=== PATIENT | male | born 1965 | race African-American/Black ===

== ENCOUNTER 2017-04-06 13:40 | Emergency (ER) | payer OTHER, MEDICAID ==
[~2017-04-06] VITALS: Ht 182.9 cm; Wt 65.0 kg
[2017-04-06] MEDS ORDERED: METHYLPREDNISOLONE SOD SUCC 125 MG/2 ML VIAL IV STA (14:21)
[2017-04-06] MEDS ORDERED: ALBUTEROL (0.083%) 2.5MG/3ML NEB HHN STA (14:21)
[2017-04-06] MEDS ORDERED: ASPIRIN 81MG TABLET PO STA (14:21)
[2017-04-06] MEDS ORDERED: NITROGLYCERIN OINT 1GM/INCH UDPKT TD STA (14:21)
[2017-04-06] MEDS ORDERED: IPRATROPIUM BROMIDE (0.02%) 0.5MG/2.5ML NEB HHN STA (14:21)
[2017-04-06] MEDS ORDERED: SODIUM CHLORIDE 0.9% 1000ML BAG (SEPSIS BOLUS) IV ONE (14:30)
[2017-04-06] MEDS ORDERED: LEVOFLOXACIN 750MG PREMIX 150 ML IV ONE (14:30)
[2017-04-06 15:00] LABS: HEMATOCRIT. 43.8 % (42.0-52.0); HEMOGLOBIN. 14.3 g/dL (14.0-18.0); MEAN CORPUSCULAR HEMOGLOBIN 30.8 pg (28.0-32.0); MEAN CORPUSCULAR VOLUME 94.1 fL (80.0-94.0); MEAN PLATELET VOLUME 6.9 fl (7.4-10.4); PLATELET 193 x1000/uL (130-400); RED BLOOD CELL COUNT 4.66 mill/uL (4.7-6.1); RED CELL DISTRIBUTION WIDTH 16.5 % (11.6-14.6)
[2017-04-06 15:07] LABS: CARBON DIOXIDE 38 mEq/L (21-32); CHLORIDE 98 mEq/L (98-107); INR 1.2; PARTIAL THROMBOPLASTIN TIME 25.8 sec (24.0-34.0); PROTHROMBIN TIME 12.1 sec
[2017-04-06 15:15] LABS: TROPONIN I 0.02 ng/mL (0.00-0.04)
[2017-04-06 15:39] LABS: PLATELET ESTIMATE NORMAL
[2017-04-06 15:42] LABS: CLARITY URINE CLEAR (CLEAR); COLOR URINE YELLOW (YELLOW); GLUCOSE URINE NEGATIVE (NEGATIVE); KETONES URINE NEGATIVE (NEGATIVE); LEUKOCYTE ESTERASE URINE TRACE (NEGATIVE); NITRITE URINE NEGATIVE (NEGATIVE); OCCULT BLOOD URINE NEGATIVE (NEGATIVE); PH URINE 5.5 (4.5-8.0); PROTEIN URINE NEGATIVE (NEGATIVE); SPECIFIC GRAVITY URINE 1.018 (1.005-1.030)
[2017-04-06 17:59] VITALS: BP 105/93
[2017-04-14] MEDS ORDERED: AZIT500T5 PO (11:10)
[2017-04-14] MEDS ORDERED: METH4TAB17 PO (11:10)
[2017-04-14] MEDS ORDERED: TIOT18CA3 INH (11:10)
[2017-04-14] MEDS ORDERED: ALBU6.7H INH (11:10)
== END 2017-04-06 18:03 | disposition left against medical advice (07) ==
LOC: EDBD → ER 14:16 → EDBEDREQ 15:50 → ER 18:03 → CANBEDREQ 18:34
DX: J44.1 Chronic obstructive pulmonary disease with (acute) exacerbation (principal); J45.909 Unspecified asthma, uncomplicated; R79.89 Other specified abnormal findings of blood chemistry; I10 Essential (primary) hypertension
CPT/HCPCS: 36415; 71010; 80053; 81001; 83605; 83690; 83880; 84484; 85025; 85610; 85730; 87040; 87086; 93005; 94640; 96365; 96366; 96375; 99285; G0482; J1956; J2930; J7030; J7611; 96361

== ENCOUNTER 2017-05-30 19:14 | Emergency (ER) | payer OTHER, MEDICAID ==
[~2017-05-30] VITALS: Ht 180.3 cm; Wt 78.0 kg
[~2017-05-30 19:14] MED LIST: ALBU6.7H INH; AZIT500T5 PO; METH4TAB17 PO; QUET25TA PO; THEOL PO; TIOT18CA3 INH; dilantin; predni PO
[2017-05-30] MEDS ORDERED: ASPIRIN 81MG TABLET PO STA (21:32)
[2017-05-30] MEDS ORDERED: FUROSEMIDE 40MG/4ML VIAL IV STA (21:32)
[2017-05-30] MEDS ORDERED: NITROGLYCERIN OINT 1GM/INCH UDPKT TD STA (21:32)
[2017-05-30 22:06] VITALS: BP 125/96
[2017-05-30] MEDS ORDERED: LEVOFLOXACIN 750MG PREMIX 150 ML IV ONE (23:00)
[2017-05-30 23:01] LABS: *AMPHETAMINES SCREEN URINE NEGATIVE (NEGATIVE); *BARBITURATES SCREEN URINE NEGATIVE (NEGATIVE); *BENZODIAZEPINES SCREEN URINE NEGATIVE (NEGATIVE); *COCAINE SCREEN URINE NEGATIVE (NEGATIVE); CANNABINOID URINE SCREEN PRESUMTIVE POSITIVE (NEGATIVE); METHADONE URINE SCREEN NEGATIVE (NEGATIVE); OPIATES URINE SCREEN NEGATIVE (NEGATIVE); PHENCYCLIDINE URINE SCREEN NEGATIVE (NEGATIVE)
[2017-05-30 23:13] LABS: BG CARBOXYHEMOGLOBIN 2.7 % (0.5-1.5); BG FRACTION INSPIRED OXYGEN 28; BG HCO3 ACT 39.7 mmol/L (22.0-26.0); BG METHEMOGLOBIN 0.3 % (0.0-1.5); BG OXYGEN SATURATION 91.8 % (92.0-98.5); BG PCO2 62.8 mmHg (35.0-45.0); BG PH 7.419 (7.350-7.450); BG PO2 63.1 mmHg (75.0-100.0); BG SAMPLE SITE RIGHT RADIAL; BG TOTAL HEMOGLOBIN 16.3 g/dL (12.0-18.0); BG VENT MODE NASAL CANNULA
[2017-05-30 23:26] LABS: BASOPHILS % 0.4 % (0.0-2.0); EOSINOPHILS % 0.1 % (0.0-5.0); HEMATOCRIT. 46.6 % (42.0-52.0); HEMOGLOBIN. 15.1 g/dL (14.0-18.0); LYMPHOCYTES % 10.4 % (20.0-50.0); MEAN CORPUSCULAR VOLUME 92.4 fL (80.0-94.0); MEAN PLATELET VOLUME 7.4 fl (7.4-10.4); MONOCYTES % 6.9 % (2.0-8.0); NEUTROPHILS % 82.2 % (40.0-76.0); PLATELET 202 x1000/uL (130-400); RED BLOOD CELL COUNT 5.04 mill/uL (4.7-6.1); RED CELL DISTRIBUTION WIDTH 16.3 % (11.6-14.6)
[2017-05-30 23:39] LABS: D-DIMER 1.57 mg/L FEU (<0.50); INR 1.1; PARTIAL THROMBOPLASTIN TIME 24.2 sec (24.0-34.0); PROTHROMBIN TIME 11.6 sec
[2017-05-30 23:45] LABS: CHLORIDE 94 mEq/L (98-107); ETHANOL BLOOD < 10 mg/dL; TROPONIN I < 0.02 ng/mL (0.00-0.04)
[2017-05-30 23:56] LABS: CARBON DIOXIDE 43 mEq/L (21-32)
== END 2017-05-30 23:35 | disposition left against medical advice (07) ==
LOC: ER 19:14 → MERGE 19:14 → ER 23:35 → CANBEDREQ 05-31 07:02
DX: E87.2 Acidosis (principal); R06.02 Shortness of breath; F17.210 Nicotine dependence, cigarettes, uncomplicated; R91.8 Other nonspecific abnormal finding of lung field; R09.02 Hypoxemia; Z88.5 Allergy status to narcotic agent
CPT/HCPCS: 36415; 36600; 71101; 80053; 80305; 82375; 82805; 83605; 83880; 84484; 85025; 85379; 85610; 85730; 87040; 93005; 96374; 99285; G0482; J1940

== ENCOUNTER 2017-06-05 16:23 | Emergency (ER) | payer OTHER, MEDICAID ==
[~2017-06-05] VITALS: Ht 172.7 cm; Wt 77.0 kg
[~2017-06-05 16:23] MED LIST changes: -dilantin; -predni PO
[2017-06-05 17:06] VITALS: BP 113/82
[2017-06-05] MEDS ORDERED: SODIUM CHLORIDE 0.9% 1,000 ML IV ONE (17:36)
[2017-06-05 18:01] LABS: BASOPHILS % 0.7 % (0.0-2.0); EOSINOPHILS % 0.6 % (0.0-5.0); HEMATOCRIT. 45.7 % (42.0-52.0); HEMOGLOBIN. 14.7 g/dL (14.0-18.0); LYMPHOCYTES % 26.7 % (20.0-50.0); MEAN CORPUSCULAR HEMOGLOBIN 29.7 pg (28.0-32.0); MEAN CORPUSCULAR VOLUME 92.2 fL (80.0-94.0); MEAN PLATELET VOLUME 7.7 fl (7.4-10.4); MONOCYTES % 8.8 % (2.0-8.0); NEUTROPHILS % 63.2 % (40.0-76.0); PLATELET 146 x1000/uL (130-400); RED BLOOD CELL COUNT 4.95 mill/uL (4.7-6.1); RED CELL DISTRIBUTION WIDTH 16.2 % (11.6-14.6)
[2017-06-05 18:15] LABS: CARBON DIOXIDE 38 mEq/L (21-32); CHLORIDE 100 mEq/L (98-107); TROPONIN I 0.04 ng/mL (0.00-0.04)
[2017-06-05 18:43] LABS: INR 1.1; PROTHROMBIN TIME 11.8 sec (9.4-11.6)
== END 2017-06-05 18:55 | disposition left against medical advice (07) ==
LOC: ER 17:06 → MERGE 17:06 → ER 18:55
DX: R10.33 Periumbilical pain (principal); F99 Mental disorder, not otherwise specified; G40.909 Epilepsy, unspecified, not intractable, without status epilepticus; F17.210 Nicotine dependence, cigarettes, uncomplicated; Z88.5 Allergy status to narcotic agent
CPT/HCPCS: 36415; 80053; 83690; 84484; 85025; 85610; 99284; J7030

== ENCOUNTER 2017-06-08 22:22 | Emergency (ER) | payer OTHER, MEDICAID ==
[~2017-06-08] VITALS: Ht 172.7 cm; Wt 60.0 kg
[2017-06-08 23:40] LABS: BASOPHILS % 0.3 % (0.0-2.0); EOSINOPHILS % 0.4 % (0.0-5.0); HEMOGLOBIN. 15.5 g/dL (14.0-18.0); LYMPHOCYTES % 16.7 % (20.0-50.0); MEAN CORPUSCULAR HEMOGLOBIN 29.7 pg (28.0-32.0); MONOCYTES % 7.7 % (2.0-8.0); NEUTROPHILS % 74.9 % (40.0-76.0); PLATELET 126 x1000/uL (130-400); RED BLOOD CELL COUNT 5.22 mill/uL (4.7-6.1); RED CELL DISTRIBUTION WIDTH 16.1 % (11.6-14.6)
[2017-06-08 23:46] LABS: CHLORIDE 102 mEq/L (98-107)
[2017-06-08 23:52] LABS: CARBON DIOXIDE 36 mEq/L (21-32)
[2017-06-09 02:27] VITALS: BP 99/48
== END 2017-06-09 03:27 | disposition home or self-care (01) ==
LOC: ER 22:22 → MERGE 22:22 → ER 06-09 03:27
DX: M54.5 Low back pain (principal); F17.200 Nicotine dependence, unspecified, uncomplicated; Z88.5 Allergy status to narcotic agent
CPT/HCPCS: 36415; 70450; 72100; 72125; 80048; 85025; 99285

== ENCOUNTER 2017-06-10 15:01 | Emergency (ER) | payer OTHER ==
[~2017-06-10] VITALS: Ht 177.8 cm; Wt 77.0 kg
[2017-06-10 16:49] LABS: BASOPHILS % 1.5 % (0.0-2.0); HEMATOCRIT. 48.9 % (42.0-52.0); HEMOGLOBIN. 15.7 g/dL (14.0-18.0); MEAN CORPUSCULAR HEMOGLOBIN 29.6 pg (28.0-32.0); MEAN CORPUSCULAR VOLUME 92.2 fL (80.0-94.0); MONOCYTES % 12.3 % (2.0-8.0); NEUTROPHILS % 50.2 % (40.0-76.0); PLATELET 112 x1000/uL (130-400); RED CELL DISTRIBUTION WIDTH 16.6 % (11.6-14.6)
[2017-06-10 16:51] LABS: CHLORIDE 100 mEq/L (98-107); INR 1.1; PROTHROMBIN TIME 11.2 sec (9.4-11.6)
[2017-06-10 16:58] LABS: ETHANOL BLOOD < 10 mg/dL
[2017-06-10 17:00] LABS: CARBON DIOXIDE 40 mEq/L (21-32)
[2017-06-10 17:01] LABS: PHENYTOIN < 0.4 ug/mL (10-20)
[2017-06-10] MEDS ORDERED: IPRATROPIUM/ALBUTEROL 0.5-3(2.5)MG/3ML NEB HHN ONE ×2 (17:30→17:45)
[2017-06-10] MEDS ORDERED: METHYLPREDNISOLONE SOD SUCC 125 MG/2 ML VIAL IV STA (17:32)
[2017-06-10] MEDS ORDERED: PHENYTOIN SODIUM 1,000 MG in SODIUM CHLORIDE 0.9% 100 ML IV ONE (18:00)
[2017-06-10] MEDS ORDERED: METHYLPREDNISOLONE SOD SUCC 125 MG/2 ML VIAL IM STA (18:08)
[2017-06-10] MEDS ORDERED: PREDNISONE 20MG TABLET PO STA (18:08)
[2017-06-10 18:17] VITALS: BP 116/70
[2017-06-10] MEDS ORDERED: PHENYTOIN SODIUM EXTENDED 100MG CAPSULE PO ONE (19:00)
== END 2017-06-10 19:42 | disposition left against medical advice (07) ==
LOC: ER 16:19
DX: J44.1 Chronic obstructive pulmonary disease with (acute) exacerbation (principal); J45.901 Unspecified asthma with (acute) exacerbation; G40.909 Epilepsy, unspecified, not intractable, without status epilepticus; N40.0 Benign prostatic hyperplasia without lower urinary tract symptoms; I10 Essential (primary) hypertension; F17.200 Nicotine dependence, unspecified, uncomplicated; Z88.6 Allergy status to analgesic agent; Z91.19 Patient's noncompliance with other medical treatment and regimen
CPT/HCPCS: 36415; 71010; 80053; 80185; 83880; 85025; 85610; 93005; 99285; G0482; J1165; J2930; J7512; J7050; J7620

== ENCOUNTER 2017-06-10 22:42 | Emergency (ER) | payer OTHER ==
[~2017-06-10] VITALS: Ht 182.9 cm; Wt 75.0 kg
[2017-06-10 23:13] VITALS: BP 106/73
== END 2017-06-11 03:40 | disposition left against medical advice (07) ==
LOC: ER 22:42
DX: R10.9 Unspecified abdominal pain (principal); Z53.21 Procedure and treatment not carried out due to patient leaving prior to being seen by health care provider

== ENCOUNTER 2017-06-11 10:16 | Emergency (ER) | payer OTHER, MEDICAID ==
[~2017-06-11] VITALS: Ht 182.9 cm; Wt 78.0 kg
[2017-06-11 10:55] VITALS: BP 155/86
== END 2017-06-11 12:03 | disposition left against medical advice (07) ==
LOC: ER 10:16
DX: R10.9 Unspecified abdominal pain (principal); Z53.21 Procedure and treatment not carried out due to patient leaving prior to being seen by health care provider

== ENCOUNTER 2017-06-13 16:47 | Emergency (ER) | payer OTHER, MEDICAID ==
[~2017-06-13] VITALS: Ht 167.6 cm; Wt 77.0 kg
[2017-06-13 16:57] VITALS: BP 106/85
== END 2017-06-13 16:55 | disposition left against medical advice (07) ==
LOC: ER 16:47
DX: R10.9 Unspecified abdominal pain (principal); M79.605 Pain in left leg; M79.604 Pain in right leg; Z53.21 Procedure and treatment not carried out due to patient leaving prior to being seen by health care provider

== ENCOUNTER 2017-06-16 21:02 | Emergency (ER) | payer OTHER, MEDICAID ==
[~2017-06-16] VITALS: Ht 185.4 cm; Wt 70.0 kg
[2017-06-16] MEDS ORDERED: ALBUTEROL (0.083%) 2.5MG/3ML NEB HHN STA (22:59)
[2017-06-16] MEDS ORDERED: IPRATROPIUM BROMIDE (0.02%) 0.5MG/2.5ML NEB HHN STA (22:59)
[2017-06-16] MEDS ORDERED: METHYLPREDNISOLONE SOD SUCC 125 MG/2 ML VIAL IV STA (22:59)
[2017-06-16 23:28] LABS: CHLORIDE 102 mEq/L (98-107)
[2017-06-16 23:36] LABS: CARBON DIOXIDE 36 mEq/L (21-32)
[2017-06-17 00:09] LABS: BASOPHILS % 1.1 % (0.0-2.0); HEMATOCRIT. 43.7 % (42.0-52.0); LYMPHOCYTES % 31.6 % (20.0-50.0); MEAN CORPUSCULAR HEMOGLOBIN 29.5 pg (28.0-32.0); MEAN CORPUSCULAR VOLUME 90.9 fL (80.0-94.0); MEAN PLATELET VOLUME 7.5 fl (7.4-10.4); MONOCYTES % 14.8 % (2.0-8.0); NEUTROPHILS % 51.5 % (40.0-76.0); PLATELET 122 x1000/uL (130-400); RED BLOOD CELL COUNT 4.81 mill/uL (4.7-6.1); RED CELL DISTRIBUTION WIDTH 16.6 % (11.6-14.6)
[2017-06-17 00:11] LABS: HEMOGLOBIN. 14.2 g/dL (14.0-18.0)
[2017-06-17 02:18] VITALS: BP 117/74
== END 2017-06-17 02:40 | disposition home or self-care (01) ==
LOC: ER 06-17 02:40
DX: J44.9 Chronic obstructive pulmonary disease, unspecified (principal); I50.9 Heart failure, unspecified; F17.200 Nicotine dependence, unspecified, uncomplicated; J45.909 Unspecified asthma, uncomplicated; Z88.5 Allergy status to narcotic agent
CPT/HCPCS: 36415; 71010; 80048; 82962; 85025; 94640; 96374; 99285; J2930; J7611; 99406

== ENCOUNTER 2017-06-20 14:47 | Emergency (ER) | payer OTHER, MEDICAID ==
[~2017-06-20] VITALS: Ht 185.4 cm; Wt 84.0 kg
[2017-06-20 16:16] LABS: CHLORIDE 102 mEq/L (98-107)
[2017-06-20 16:23] LABS: BASOPHILS % 0.6 % (0.0-2.0); EOSINOPHILS % 0.8 % (0.0-5.0); HEMATOCRIT. 46.4 % (42.0-52.0); HEMOGLOBIN. 14.8 g/dL (14.0-18.0); LYMPHOCYTES % 26.3 % (20.0-50.0); MEAN CORPUSCULAR HEMOGLOBIN 29.4 pg (28.0-32.0); MEAN PLATELET VOLUME 8.2 fl (7.4-10.4); MONOCYTES % 14.1 % (2.0-8.0); NEUTROPHILS % 58.2 % (40.0-76.0); PLATELET 143 x1000/uL (130-400); RED BLOOD CELL COUNT 5.05 mill/uL (4.7-6.1); RED CELL DISTRIBUTION WIDTH 16.9 % (11.6-14.6)
[2017-06-20 16:25] LABS: CARBON DIOXIDE 38 mEq/L (21-32); ETHANOL BLOOD < 10 mg/dL
[2017-06-20 18:18] LABS: CLARITY URINE CLOUDY (CLEAR); COLOR URINE DARK YELLOW (YELLOW); GLUCOSE URINE NEGATIVE (NEGATIVE); KETONES URINE NEGATIVE (NEGATIVE); LEUKOCYTE ESTERASE URINE NEGATIVE (NEGATIVE); NITRITE URINE NEGATIVE (NEGATIVE); OCCULT BLOOD URINE NEGATIVE (NEGATIVE); PH URINE 5.5 (4.5-8.0); PROTEIN URINE 2+ (NEGATIVE); SPECIFIC GRAVITY URINE 1.033 (1.005-1.030)
[2017-06-20 18:32] LABS: *AMPHETAMINES SCREEN URINE NEGATIVE (NEGATIVE); *BARBITURATES SCREEN URINE NEGATIVE (NEGATIVE); *BENZODIAZEPINES SCREEN URINE NEGATIVE (NEGATIVE); *COCAINE SCREEN URINE NEGATIVE (NEGATIVE); CANNABINOID URINE SCREEN PRESUMTIVE POSITIVE (NEGATIVE); METHADONE URINE SCREEN NEGATIVE (NEGATIVE); OPIATES URINE SCREEN NEGATIVE (NEGATIVE); PHENCYCLIDINE URINE SCREEN NEGATIVE (NEGATIVE)
[2017-06-20 22:45] VITALS: BP 104/65
== END 2017-06-21 01:45 | disposition left against medical advice (07) ==
LOC: ER 16:35
DX: K52.9 Noninfective gastroenteritis and colitis, unspecified (principal); E11.43 Type 2 diabetes mellitus with diabetic autonomic (poly)neuropathy; K31.84 Gastroparesis; E11.65 Type 2 diabetes mellitus with hyperglycemia; E44.1 Mild protein-calorie malnutrition; E86.0 Dehydration; J45.909 Unspecified asthma, uncomplicated; N17.0 Acute kidney failure with tubular necrosis; I50.9 Heart failure, unspecified; F32.9 Major depressive disorder, single episode, unspecified; J44.9 Chronic obstructive pulmonary disease, unspecified; F41.9 Anxiety disorder, unspecified; F12.10 Cannabis abuse, uncomplicated; Z68.24 Body mass index [BMI] 24.0-24.9, adult; Z88.5 Allergy status to narcotic agent; Z59.0 Homelessness
CPT/HCPCS: 36415; 74176; 80053; 80305; 81001; 82962; 83036; 85025; 85651; 87040; 87077; 87086; 87186; 99285; G0482

== ENCOUNTER 2017-06-23 01:19 | Emergency (ER) | payer OTHER, MEDICAID ==
[~2017-06-23] VITALS: Ht 182.9 cm; Wt 82.0 kg
[2017-06-23] MEDS ORDERED: IBUPROFEN 800MG TABLET PO ONE (06:30)
[2017-06-23 08:48] VITALS: BP 112/86
== END 2017-06-23 09:09 | disposition home or self-care (01) ==
LOC: ER 01:19
DX: S00.83XA Contusion of other part of head, initial encounter (principal); M54.5 Low back pain; I50.9 Heart failure, unspecified; J44.9 Chronic obstructive pulmonary disease, unspecified; Z88.5 Allergy status to narcotic agent; Y04.0XXA Assault by unarmed brawl or fight, initial encounter; Y93.89 Activity, other specified; Y92.89 Other specified places as the place of occurrence of the external cause; Y99.8 Other external cause status
CPT/HCPCS: 99283

== ENCOUNTER 2017-06-23 12:04 | Emergency (ER) | payer OTHER, MEDICAID ==
[~2017-06-23] VITALS: Ht 172.7 cm; Wt 60.0 kg
[2017-06-23 12:54] VITALS: BP 170/135
== END 2017-06-23 17:45 | disposition left against medical advice (07) ==
LOC: ER 12:04
DX: Z53.21 Procedure and treatment not carried out due to patient leaving prior to being seen by health care provider (principal)

== ENCOUNTER 2017-06-25 12:35 | Emergency (ER) | payer OTHER, MEDICAID ==
[~2017-06-25] VITALS: Ht 177.8 cm; Wt 70.0 kg
[2017-06-25 20:29] VITALS: BP 109/80
== END 2017-06-26 00:11 | disposition home or self-care (01) ==
LOC: ER 12:35
DX: S09.90XA Unspecified injury of head, initial encounter (principal); G40.909 Epilepsy, unspecified, not intractable, without status epilepticus; F43.10 Post-traumatic stress disorder, unspecified; F10.10 Alcohol abuse, uncomplicated; Y90.9 Presence of alcohol in blood, level not specified; Z88.5 Allergy status to narcotic agent; Y08.89XA Assault by other specified means, initial encounter; Y93.89 Activity, other specified; Y92.488 Other paved roadways as the place of occurrence of the external cause
CPT/HCPCS: 70450; 70486; 99284

== ENCOUNTER 2017-06-30 07:34 | Inpatient (IN) | payer OTHER, MEDICAID ==
[2017-06-30] VITALS (11 sets, daily range): BP systolic 92–139; BP diastolic 39–85
[~2017-06-30] VITALS: Ht 180.3 cm; Wt 67.3 kg
[2017-06-30] MEDS ORDERED: METHYLPREDNISOLONE SOD SUCC 125 MG/2 ML VIAL IV STA (09:12)
[2017-06-30] MEDS ORDERED: IPRATROPIUM/ALBUTEROL 0.5-3(2.5)MG/3ML NEB HHN ONE ×2 (09:15→13:15)
[2017-06-30] MEDS ORDERED: IPRATROPIUM/ALBUTEROL 0.5-3(2.5)MG/3ML NEB ONE (09:34)
[2017-06-30 09:56] LABS: BASOPHILS % 0.7 % (0.0-2.0); EOSINOPHILS % 0.5 % (0.0-5.0); HEMATOCRIT. 45.9 % (42.0-52.0); HEMOGLOBIN. 14.7 g/dL (14.0-18.0); LYMPHOCYTES % 19.1 % (20.0-50.0); MEAN CORPUSCULAR HEMOGLOBIN 29.5 pg (28.0-32.0); MEAN CORPUSCULAR VOLUME 92.4 fL (80.0-94.0); MEAN PLATELET VOLUME 8.2 fl (7.4-10.4); MONOCYTES % 13.4 % (2.0-8.0); NEUTROPHILS % 66.3 % (40.0-76.0); PLATELET 130 x1000/uL (130-400); RED BLOOD CELL COUNT 4.97 mill/uL (4.7-6.1); RED CELL DISTRIBUTION WIDTH 17.7 % (11.6-14.6)
[2017-06-30 10:01] LABS: INR 1.1; PARTIAL THROMBOPLASTIN TIME 26.6 sec (23.4-31.0); PROTHROMBIN TIME 11.5 sec (9.4-11.6)
[2017-06-30 10:11] LABS: CARBON DIOXIDE 39 mEq/L (21-32); CHLORIDE 94 mEq/L (98-107); TROPONIN I < 0.02 ng/mL (0.00-0.04)
[2017-06-30 10:25] LABS: CARBAMAZEPINE < 0.5 ug/mL (4-12); PHENOBARBITAL < 2.1 ug/mL (15.0-40.0)
[2017-06-30 10:43] LABS: CLARITY URINE CLOUDY (CLEAR); COLOR URINE DARK YELLOW (YELLOW); GLUCOSE URINE NEGATIVE (NEGATIVE); KETONES URINE TRACE (NEGATIVE); LEUKOCYTE ESTERASE URINE 1+ (NEGATIVE); NITRITE URINE NEGATIVE (NEGATIVE); OCCULT BLOOD URINE NEGATIVE (NEGATIVE); PH URINE 5.5 (4.5-8.0); PROTEIN URINE 2+ (NEGATIVE); SPECIFIC GRAVITY URINE 1.026 (1.005-1.030)
[2017-06-30 12:54] LABS: BG BASE EXCESS 11.9 mmol/L (-2.0-2.0); BG CARBOXYHEMOGLOBIN 4.8 % (0.5-1.5); BG DEOXYHEMOGLOBIN 10.7 % (0.0-5.0); BG FRACTION INSPIRED OXYGEN 36; BG HCO3 ACT 43.7 mmol/L (22.0-26.0); BG METHEMOGLOBIN 0.4 % (0.0-1.5); BG OXYGEN SATURATION 88.7 % (92.0-98.5); BG OXYHEMOGLOBIN 84.1 % (94.0-97.0); BG PCO2 94.8 mmHg (35.0-45.0); BG PH 7.282 (7.350-7.450); BG PO2 60.4 mmHg (75.0-100.0); BG SAMPLE SITE RIGHT RADIAL; BG TOTAL HEMOGLOBIN 15.9 g/dL (12.0-18.0); BG VENT MODE NASAL CANNULA
[2017-06-30] MEDS ORDERED: CLONIDINE 0.1MG TABLET PO PRN (13:15)
[2017-06-30] MEDS ORDERED: HYDROCODONE/ACETAMINOPHEN 5/325MG TABLET PO PRN (13:15)
[2017-06-30] MEDS ORDERED: ONDANSETRON HCL 4MG/2ML VIAL IV PRN (13:15)
[2017-06-30] MEDS ORDERED: SODIUM POLYSTYRENE SULFONATE 15 G/60 ML BOT PO NR (13:15)
[2017-06-30] MEDS ORDERED: IPRATROPIUM/ALBUTEROL 0.5-3(2.5)MG/3ML NEB INH PRN (13:15)
[2017-06-30] MEDS ORDERED: ACETAMINOPHEN 325MG TABLET PO PRN (13:15)
[2017-06-30] MEDS ORDERED: DIPHENHYDRAMINE 50MG/ML VIAL IV PRN (13:15)
[2017-06-30 15:56] LABS: BG BASE EXCESS 6.9 mmol/L (-2.0-2.0); BG BILEVEL POS AIRWAY PRESSURE 15/5; BG CARBOXYHEMOGLOBIN 3.7 % (0.5-1.5); BG DEOXYHEMOGLOBIN 2.8 % (0.0-5.0); BG FRACTION INSPIRED OXYGEN 50; BG HCO3 ACT 37.6 mmol/L (22.0-26.0); BG METHEMOGLOBIN 0.5 % (0.0-1.5); BG OXYGEN SATURATION 97.1 % (92.0-98.5); BG PCO2 82.8 mmHg (35.0-45.0); BG PH 7.275 (7.350-7.450); BG PO2 100.2 mmHg (75.0-100.0); BG SAMPLE SITE RIGHT RADIAL; BG TOTAL HEMOGLOBIN 16.1 g/dL (12.0-18.0); BG VENT MODE MASK - BIPAP; BG VENT RATE 22 set
[2017-06-30] MEDS ORDERED: LEVOFLOXACIN 500MG PREMIX 100 ML IV SCH (16:00)
[2017-06-30] MEDS: BUDESONIDE 0.5MG/2ML NEB HHN SCH ×2 (16:29→20:47)
[2017-06-30] MEDS: IPRATROPIUM/ALBUTEROL 0.5-3(2.5)MG/3ML NEB INH SCH ×2 (16:29→20:46)
[2017-06-30] MEDS: METHYLPREDNISOLONE SOD SUCC 40 MG/ML VIAL IV SCH (17:27)
[2017-06-30 20:00] LABS: *AMPHETAMINES SCREEN URINE NEGATIVE (NEGATIVE); *BARBITURATES SCREEN URINE NEGATIVE (NEGATIVE); *BENZODIAZEPINES SCREEN URINE NEGATIVE (NEGATIVE); *COCAINE SCREEN URINE NEGATIVE (NEGATIVE); CANNABINOID URINE SCREEN PRESUMTIVE POSITIVE (NEGATIVE); METHADONE URINE SCREEN NEGATIVE (NEGATIVE); OPIATES URINE SCREEN NEGATIVE (NEGATIVE); PHENCYCLIDINE URINE SCREEN NEGATIVE (NEGATIVE)
[2017-06-30] MEDS ORDERED: ENOXAPARIN 40MG/0.4ML SYR SUBCUT SCH (21:00)
[2017-06-30] MEDS: THEOPHYLLINE ANHYDROUS 80 MG/15 ML 120ML PO SCH (21:37)
[2017-06-30] MEDS ORDERED: QUETIAPINE FUMARATE 25MG TABLET PO SCH (22:00)
[2017-06-30] MEDS ORDERED: FUROSEMIDE 40MG/4ML VIAL IVP SCH (22:15)
[2017-07-01] MEDS: THEOPHYLLINE ANHYDROUS 80 MG/15 ML 120ML PO SCH
[2017-07-01 00:10] VITALS: BP 123/79
[2017-07-01] MEDS: IPRATROPIUM/ALBUTEROL 0.5-3(2.5)MG/3ML NEB INH SCH (00:36)
[2017-07-01] MEDS: METHYLPREDNISOLONE SOD SUCC 40 MG/ML VIAL IV SCH (01:26)
[2017-07-01 01:59] VITALS: BP 145/28
== END 2017-07-01 04:00 | disposition left against medical advice (07) | DRG 189 ==
LOC: ER 08:27 → 3WST 13:01 → ENRESERV 13:02 → EDBEDREQSVC 13:04 → 3WST 22:56
PROVIDERS: ADMIT Internal Medicine; ATTEND Internal Medicine
PROC: 5A09357 Assistance with Respiratory Ventilation, Less than 24 Consecutive Hours, Continuous Positive Airway Pressure (ICD-10-PCS; principal; 2017-06-30)
DX: J96.02 Acute respiratory failure with hypercapnia (principal); G93.40 Encephalopathy, unspecified; J44.1 Chronic obstructive pulmonary disease with (acute) exacerbation; R56.9 Unspecified convulsions; Z53.21 Procedure and treatment not carried out due to patient leaving prior to being seen by health care provider; R45.1 Restlessness and agitation; E87.5 Hyperkalemia; F41.9 Anxiety disorder, unspecified; F17.210 Nicotine dependence, cigarettes, uncomplicated; Z88.5 Allergy status to narcotic agent; Z79.51 Long term (current) use of inhaled steroids; Z79.2 Long term (current) use of antibiotics; Z79.899 Other long term (current) drug therapy
CPT/HCPCS: 36415; 36600; 71010; 80053; 80156; 80165; 80184; 80185; 80305; 81001; 82375; 82805; 82962; 83605; 83880; 84132; 84484; 85025; 85610; 85730; 87040; 87077; 87086; 87186; 93005; 94640; 94660; 96374; 99291; J1650; J1940; J1956; J2920; J2930; J7050; J7620; J7626

== ENCOUNTER 2017-08-14 22:23 | Emergency (ER) | payer OTHER, MEDICAID ==
[~2017-08-14] VITALS: Ht 167.6 cm; Wt 63.0 kg
[2017-08-14] MEDS ORDERED: SODIUM CHLORIDE 0.9% 1,000 ML IV ONE (23:04)
[2017-08-14] MEDS ORDERED: LEVETIRACETAM 500MG PREMIX 100 ML IV ONE (23:15)
[2017-08-14 23:28] LABS: BASOPHILS % 0.7 % (0.0-2.0); EOSINOPHILS % 0.5 % (0.0-5.0); HEMATOCRIT. 43.1 % (42.0-52.0); LYMPHOCYTES % 20.4 % (20.0-50.0); MEAN CORPUSCULAR HEMOGLOBIN 28.1 pg (28.0-32.0); MEAN CORPUSCULAR VOLUME 86.3 fL (80.0-94.0); MEAN PLATELET VOLUME 7.3 fl (7.4-10.4); MONOCYTES % 13.9 % (2.0-8.0); NEUTROPHILS % 64.5 % (40.0-76.0); PLATELET 102 x1000/uL (130-400); RED CELL DISTRIBUTION WIDTH 18.4 % (11.6-14.6)
[2017-08-14 23:29] LABS: CHLORIDE 105 mEq/L (98-107)
[2017-08-14 23:38] LABS: CARBON DIOXIDE 35 mEq/L (21-32)
[2017-08-15 04:32] VITALS: BP 145/82
== END 2017-08-15 04:37 | disposition home or self-care (01) ==
LOC: ER 22:56
DX: G40.909 Epilepsy, unspecified, not intractable, without status epilepticus (principal); S00.83XA Contusion of other part of head, initial encounter; Z88.5 Allergy status to narcotic agent; W01.0XXA Fall on same level from slipping, tripping and stumbling without subsequent striking against object, initial encounter; Y93.89 Activity, other specified; Y92.488 Other paved roadways as the place of occurrence of the external cause
CPT/HCPCS: 36415; 70450; 71010; 80053; 85025; 93005; 96365; 99285; J1953; J7030

== ENCOUNTER 2017-10-14 10:33 | Emergency (ER) | payer OTHER, MEDICAID ==
[~2017-10-14] VITALS: Ht 177.8 cm; Wt 70.0 kg
[2017-10-14 11:28] LABS: BG BASE EXCESS 8.4 mmol/L (-2.0-2.0); BG CARBOXYHEMOGLOBIN 4.6 % (0.5-1.5); BG DEOXYHEMOGLOBIN 10.5 % (0.0-5.0); BG FRACTION INSPIRED OXYGEN 21; BG HCO3 ACT 36.1 mmol/L (22.0-26.0); BG METHEMOGLOBIN 0.3 % (0.0-1.5); BG OXYHEMOGLOBIN 84.6 % (94.0-97.0); BG PCO2 62.7 mmHg (35.0-45.0); BG PH 7.378 (7.350-7.450); BG SAMPLE SITE RIGHT BRACHIAL; BG TOTAL HEMOGLOBIN 14.8 g/dL (12.0-18.0); BG VENT MODE ROOM AIR
[2017-10-14 11:30] LABS: BASOPHILS % 0.7 % (0.0-2.0); EOSINOPHILS % 3.2 % (0.0-5.0); HEMATOCRIT. 43.1 % (42.0-52.0); HEMOGLOBIN. 13.9 g/dL (14.0-18.0); LYMPHOCYTES % 36.8 % (20.0-50.0); MEAN CORPUSCULAR HEMOGLOBIN 29.3 pg (28.0-32.0); MEAN CORPUSCULAR VOLUME 91.1 fL (80.0-94.0); MEAN PLATELET VOLUME 6.7 fl (7.4-10.4); MONOCYTES % 12.7 % (2.0-8.0); NEUTROPHILS % 46.6 % (40.0-76.0); PLATELET 196 x1000/uL (130-400); RED BLOOD CELL COUNT 4.74 mill/uL (4.7-6.1); RED CELL DISTRIBUTION WIDTH 17.8 % (11.6-14.6)
[2017-10-14 11:37] LABS: INR 1.1; PROTHROMBIN TIME 11.1 sec (9.4-11.6)
[2017-10-14] MEDS ORDERED: METHYLPREDNISOLONE SOD SUCC 125 MG/2 ML VIAL IV STA (11:39)
[2017-10-14] MEDS ORDERED: ALBUTEROL (0.083%) 2.5MG/3ML NEB HHN STA (11:39)
[2017-10-14] MEDS ORDERED: IPRATROPIUM BROMIDE (0.02%) 0.5MG/2.5ML NEB HHN STA (11:39)
[2017-10-14 11:50] LABS: CARBON DIOXIDE 38 mEq/L (21-32); CHLORIDE 100 mEq/L (98-107)
[2017-10-14 12:20] LABS: CLARITY URINE TURBID (CLEAR); COLOR URINE YELLOW (YELLOW); KETONES URINE NEGATIVE (NEGATIVE); LEUKOCYTE ESTERASE URINE 2+ (NEGATIVE); NITRITE URINE NEGATIVE (NEGATIVE); OCCULT BLOOD URINE NEGATIVE (NEGATIVE); PROTEIN URINE NEGATIVE (NEGATIVE); SPECIFIC GRAVITY URINE 1.023 (1.005-1.030)
[2017-10-14 12:48] VITALS: BP 107/72
[2017-10-14] MEDS ORDERED: FAMOTIDINE 20MG/2ML VIAL IV STA (12:51)
[2017-10-14] MEDS ORDERED: ACETAMINOPHEN 325MG TABLET PO ONE (13:00)
[2017-10-14] MEDS ORDERED: AZITHROMYCIN 500 MG TABLET PO SCH (14:00)
[2017-10-14] MEDS ORDERED: MAGNESIUM/ALUMINUM HYDROXIDE/SIMETHICONE 30ML UDC PO PRN (14:00)
[2017-10-14] MEDS ORDERED: DOCUSATE SODIUM 100MG CAPSULE PO PRN (14:00)
[2017-10-14] MEDS ORDERED: ACETAMINOPHEN 325MG TABLET PO PRN (14:00)
[2017-10-14] MEDS ORDERED: CLONIDINE 0.1MG TABLET PO PRN (14:00)
[2017-10-14] MEDS ORDERED: ENOXAPARIN 40MG/0.4ML SYR SUBCUT SCH (14:00)
[2017-10-14] MEDS ORDERED: IPRATROPIUM/ALBUTEROL 0.5-3(2.5)MG/3ML NEB INH PRN (14:00)
[2017-10-14] MEDS ORDERED: METHYLPREDNISOLONE SOD SUCC 125 MG/2 ML VIAL IV SCH (14:00)
[2017-10-14] MEDS ORDERED: BUDESONIDE 0.5MG/2ML NEB HHN SCH (14:00)
[2017-10-14] MEDS ORDERED: ONDANSETRON HCL 4MG/2ML VIAL IV PRN (14:00)
[2017-10-14] MEDS ORDERED: GUAIFENESIN 200MG/10ML SUGAR FREE UDC PO PRN (14:00)
[2017-10-14] MEDS ORDERED: AMINOPHYLLINE IV ONE (15:30)
[2017-10-14] MEDS ORDERED: TERBUTALINE SULFATE 1MG/ML VIAL SUBCUT SCH (15:30)
[2017-10-14] MEDS ORDERED: ALBUTEROL (0.083%) 2.5MG/3ML NEB HHN NR (15:30)
[2017-10-14 20:39] LABS: *AMPHETAMINES SCREEN URINE NEGATIVE (NEGATIVE); *BARBITURATES SCREEN URINE NEGATIVE (NEGATIVE); *BENZODIAZEPINES SCREEN URINE NEGATIVE (NEGATIVE); *COCAINE SCREEN URINE NEGATIVE (NEGATIVE); CANNABINOID URINE SCREEN PRESUMTIVE POSITIVE (NEGATIVE); METHADONE URINE SCREEN NEGATIVE (NEGATIVE); OPIATES URINE SCREEN NEGATIVE (NEGATIVE); PHENCYCLIDINE URINE SCREEN NEGATIVE (NEGATIVE)
[2017-10-14] MEDS ORDERED: HYDROCORTISONE SOD SUCCINATE 100 MG/2 ML VIAL IV SCH (22:00)
== END 2017-10-14 13:20 | disposition left against medical advice (07) ==
LOC: ER 10:43 → EDBEDREQ 11:52 → ENRESERV 13:19 → CANRESERV 13:19 → ER 13:20 → CANBEDREQ 15:18
DX: J44.1 Chronic obstructive pulmonary disease with (acute) exacerbation (principal); R06.89 Other abnormalities of breathing; R56.9 Unspecified convulsions; Z88.5 Allergy status to narcotic agent
CPT/HCPCS: 36415; 36600; 71010; 80053; 80305; 81001; 82375; 82805; 83690; 85025; 85610; 94644; 96374; 96375; 99291; J2930; J3490; J7611

== ENCOUNTER 2017-10-14 15:12 | Emergency (ER) | payer OTHER, MEDICAID ==
[~2017-10-14] VITALS: Ht 177.8 cm; Wt 60.0 kg
[2017-10-14 15:18] VITALS: BP 118/70
== END 2017-10-14 17:50 | disposition left against medical advice (07) ==
LOC: ER 15:31
DX: R10.9 Unspecified abdominal pain (principal); Z53.21 Procedure and treatment not carried out due to patient leaving prior to being seen by health care provider

== ENCOUNTER 2017-10-27 18:07 | Emergency (ER) | payer OTHER, MEDICAID ==
[~2017-10-27] VITALS: Ht 172.7 cm; Wt 73.0 kg
[2017-10-27] MEDS ORDERED: ALBUTEROL (0.083%) 2.5MG/3ML NEB HHN STA (19:04)
[2017-10-27] MEDS ORDERED: IPRATROPIUM BROMIDE (0.02%) 0.5MG/2.5ML NEB HHN STA (19:04)
[2017-10-27] MEDS ORDERED: ASPIRIN 81MG TABLET PO STA (19:04)
[2017-10-27] MEDS ORDERED: METHYLPREDNISOLONE SOD SUCC 125 MG/2 ML VIAL IV STA (19:04)
[2017-10-27 19:28] LABS: BASOPHILS % 0.6 % (0.0-2.0); EOSINOPHILS % 2.3 % (0.0-5.0); HEMATOCRIT. 43.4 % (42.0-52.0); HEMOGLOBIN. 13.8 g/dL (14.0-18.0); LYMPHOCYTES % 23.6 % (20.0-50.0); MEAN CORPUSCULAR HEMOGLOBIN 29.2 pg (28.0-32.0); MEAN PLATELET VOLUME 7.2 fl (7.4-10.4); NEUTROPHILS % 59.5 % (40.0-76.0); PLATELET 172 x1000/uL (130-400); RED BLOOD CELL COUNT 4.71 mill/uL (4.7-6.1); RED CELL DISTRIBUTION WIDTH 16.5 % (11.6-14.6)
[2017-10-27 19:35] LABS: INR 1.1; PARTIAL THROMBOPLASTIN TIME 27.5 sec (23.4-31.0); PROTHROMBIN TIME 11.5 sec (9.4-11.6)
[2017-10-27 19:53] LABS: CARBON DIOXIDE 37 mEq/L (21-32); CHLORIDE 99 mEq/L (98-107); TROPONIN I < 0.02 ng/mL (0.00-0.04)
[2017-10-27] MEDS ORDERED: NITROGLYCERIN OINT 1GM/INCH UDPKT TD STA (21:37)
[2017-10-27] MEDS ORDERED: FUROSEMIDE 40MG/4ML VIAL IV STA (21:37)
[2017-10-27] MEDS ORDERED: LEVOFLOXACIN 750MG PREMIX 150 ML IV ONE (21:45)
[2017-10-27 22:21] LABS: BG BASE EXCESS 6.7 mmol/L (-2.0-2.0); BG DEOXYHEMOGLOBIN 27.5 % (0.0-5.0); BG FRACTION INSPIRED OXYGEN 21; BG HCO3 ACT 35.8 mmol/L (22.0-26.0); BG METHEMOGLOBIN 0.3 % (0.0-1.5); BG OXYGEN SATURATION 71.3 % (92.0-98.5); BG OXYHEMOGLOBIN 68.2 % (94.0-97.0); BG PCO2 72.5 mmHg (35.0-45.0); BG PH 7.312 (7.350-7.450); BG PO2 40.4 mmHg (75.0-100.0); BG SAMPLE SITE LEFT BRACHIAL; BG TOTAL HEMOGLOBIN 14.8 g/dL (12.0-18.0); BG VENT MODE ROOM AIR
[2017-10-28 02:27] VITALS: BP 133/69
[2017-10-28 02:55] LABS: CLARITY URINE CLEAR (CLEAR); COLOR URINE YELLOW (YELLOW); KETONES URINE NEGATIVE (NEGATIVE); LEUKOCYTE ESTERASE URINE NEGATIVE (NEGATIVE); NITRITE URINE NEGATIVE (NEGATIVE); OCCULT BLOOD URINE NEGATIVE (NEGATIVE); PH URINE 6.5 (4.5-8.0); PROTEIN URINE NEGATIVE (NEGATIVE); SPECIFIC GRAVITY URINE 1.009 (1.005-1.030); UROBILINOGEN URINE 0.2 E.U./dL (0.2-1.0)
== END 2017-10-28 04:05 | disposition left against medical advice (07) ==
LOC: ER 19:08 → ENRESERV 10-28 11:19 → CANRESERV 10-28 11:19 → CANBEDREQ 10-28 16:25
DX: J44.1 Chronic obstructive pulmonary disease with (acute) exacerbation (principal); I50.9 Heart failure, unspecified; R56.9 Unspecified convulsions; Z79.82 Long term (current) use of aspirin; Z88.5 Allergy status to narcotic agent
CPT/HCPCS: 36415; 36600; 71045; 80053; 81003; 82375; 82805; 83605; 83880; 84484; 85025; 85610; 85730; 87040; 87086; 93005; 94644; 96365; 96375; 99285; J1940; J1956; J2930; J7611

== ENCOUNTER 2017-10-28 04:28 | Emergency (ER) | payer OTHER, MEDICAID ==
[~2017-10-28] VITALS: Ht 180.3 cm; Wt 66.0 kg
[2017-10-28 05:54] VITALS: BP 122/76
== END 2017-10-28 10:25 | disposition left against medical advice (07) ==
LOC: ER 04:28
DX: Z53.21 Procedure and treatment not carried out due to patient leaving prior to being seen by health care provider (principal)

== ENCOUNTER 2017-10-29 01:22 | Emergency (ER) | payer OTHER, MEDICAID ==
[~2017-10-29] VITALS: Ht 188 cm; Wt 74.0 kg
[2017-10-29 01:30] VITALS: BP 104/73
== END 2017-10-29 08:05 | disposition left against medical advice (07) ==
LOC: ER 01:22
DX: Z53.21 Procedure and treatment not carried out due to patient leaving prior to being seen by health care provider (principal)

== ENCOUNTER 2017-10-29 08:28 | Emergency (ER) | payer OTHER, MEDICAID ==
[~2017-10-29] VITALS: Ht 175.3 cm; Wt 68.0 kg
[2017-10-29 08:32] VITALS: BP 138/94
== END 2017-10-29 10:54 | disposition left against medical advice (07) ==
LOC: ER 10:35
DX: Z53.21 Procedure and treatment not carried out due to patient leaving prior to being seen by health care provider (principal)

== ENCOUNTER 2017-10-29 17:19 | Emergency (ER) | payer OTHER, MEDICAID ==
[~2017-10-29] VITALS: Ht 175.3 cm; Wt 68.0 kg
[2017-10-29] MEDS ORDERED: KETOROLAC 60MG/2ML VIAL IM ONE ×2 (22:15→22:42)
[2017-10-29 22:43] VITALS: BP 116/74
== END 2017-10-29 22:47 | disposition home or self-care (01) ==
LOC: ER 18:13
DX: J06.9 Acute upper respiratory infection, unspecified (principal); R07.9 Chest pain, unspecified; Z88.5 Allergy status to narcotic agent
CPT/HCPCS: 71045; 96372; 99283; J1885

== ENCOUNTER 2017-12-13 08:00 | Emergency (ER) | payer OTHER, MEDICAID ==
[~2017-12-13] VITALS: Ht 180.3 cm; Wt 83.0 kg
[2017-12-13] MEDS ORDERED: KETOROLAC 30MG/ML VIAL IV STA (10:00)
[2017-12-13] MEDS ORDERED: FAMOTIDINE 20MG/2ML VIAL IV STA (10:00)
[2017-12-13 10:40] LABS: BASOPHILS % 0.5 % (0.0-2.0); EOSINOPHILS % 0.7 % (0.0-5.0); HEMATOCRIT. 45.7 % (42.0-52.0); HEMOGLOBIN. 14.1 g/dL (14.0-18.0); LYMPHOCYTES % 21.9 % (20.0-50.0); MEAN CORPUSCULAR HEMOGLOBIN 26.3 pg (28.0-32.0); MEAN CORPUSCULAR VOLUME 85.4 fL (80.0-94.0); MEAN PLATELET VOLUME 7.5 fl (7.4-10.4); MONOCYTES % 12.6 % (2.0-8.0); NEUTROPHILS % 64.3 % (40.0-76.0); PLATELET 174 x1000/uL (130-400); RED BLOOD CELL COUNT 5.35 mill/uL (4.7-6.1)
[2017-12-13 10:44] LABS: CHLORIDE 99 mEq/L (98-107)
[2017-12-13 10:49] LABS: ETHANOL BLOOD < 10 mg/dL
[2017-12-13 11:28] VITALS: BP 115/85
[2017-12-13 12:20] LABS: CLARITY URINE CLEAR (CLEAR); COLOR URINE DARK YELLOW (YELLOW); KETONES URINE TRACE (NEGATIVE); LEUKOCYTE ESTERASE URINE NEGATIVE (NEGATIVE); NITRITE URINE NEGATIVE (NEGATIVE); OCCULT BLOOD URINE NEGATIVE (NEGATIVE); PROTEIN URINE 1+ (NEGATIVE)
== END 2017-12-13 11:41 | disposition home or self-care (01) ==
LOC: ER 08:21
DX: R10.9 Unspecified abdominal pain (principal); K80.20 Calculus of gallbladder without cholecystitis without obstruction; R18.8 Other ascites; G40.909 Epilepsy, unspecified, not intractable, without status epilepticus; J44.9 Chronic obstructive pulmonary disease, unspecified; Z88.5 Allergy status to narcotic agent; Z79.899 Other long term (current) drug therapy
CPT/HCPCS: 36415; 76705; 80053; 81003; 83690; 85025; 96374; 96375; 99285; G0482; J1885; J3490

== ENCOUNTER 2017-12-13 20:04 | Emergency (ER) | payer OTHER, MEDICAID ==
[~2017-12-13] VITALS: Ht 188 cm; Wt 77.0 kg
[2017-12-13 23:22] VITALS: BP 124/76
== END 2017-12-13 23:50 | disposition home or self-care (01) ==
LOC: ER 21:30
DX: R10.9 Unspecified abdominal pain (principal); J44.9 Chronic obstructive pulmonary disease, unspecified; G40.909 Epilepsy, unspecified, not intractable, without status epilepticus; F12.90 Cannabis use, unspecified, uncomplicated; F17.210 Nicotine dependence, cigarettes, uncomplicated
CPT/HCPCS: 99281; 99282